=== PATIENT | male | born 1955 | race Caucasian/White ===

== ENCOUNTER 2021-09-22 10:56 | Inpatient (IN) | payer MEDICAID ==
[~2021-09-22] VITALS: Ht 177.8 cm; Wt 63.6 kg
--- NOTE | 2021-09-22 11:09 | NUR ---
Dr Correa aware of pat BP, IVF orders received, to assess patient.
[2021-09-22] MEDS ORDERED: normal saline 1000ML IV soln IV ONE (11:10)
[2021-09-22 11:30] LABS: BASOPHILS # (AUTO) 0.1 X10'3 (0-0.2); BASOPHILS % (AUTO) 1.1 % (0-1); EOSINOPHILS # (AUTO) 0.3 X10'3 (0-0.9); EOSINOPHILS % (AUTO) 2.9 % (0-6); HEMATOCRIT 40.6 % (42.0-52.0); HEMOGLOBIN 13.8 g/dl (14.0-17.9); LYMPHOCYTES # (AUTO) 2.3 X10'3 (1.1-4.8); LYMPHOCYTES % (AUTO) 22.7 % (21-51); MEAN CORPUSCULAR HEMOGLOBIN 29.3 PG (27.0-31.0); MEAN CORPUSCULAR HGB CONC 33.9 g/dL (33.0-36.5); MEAN CORPUSCULAR VOLUME 86.6 FL (78-98); MEAN PLATELET VOLUME 9.6 FL (7.4-10.4); MONOCYTES # (AUTO) 0.7 X10'3 (0-0.9); MONOCYTES % (AUTO) 6.7 % (2-12); NEUTROPHILS # (AUTO) 6.7 X10'3 (1.8-7.7); NEUTROPHILS % (AUTO) 66.6 % (42-75); PLATELET COUNT 295 X10'3 (140-440); RED CELL DISTRIBUTION WIDTH 13.4 % (11.5-14.5); WHITE BLOOD COUNT 10.1 X10'3 (4.5-11.0)
[2021-09-22 12:00] LABS: ALANINE AMINOTRANSFERASE 24 U/L (12-78); ALBUMIN 3.5 G/DL (3.4-5.0); ALBUMIN/GLOBULIN RATIO 0.9 (1.1-1.5); ALKALINE PHOSPHATASE 199 IU/L (46-116); ANION GAP 12 (8-16); ASPARTATE AMINO TRANSFERASE 13 U/L (10-37); BILIRUBIN,TOTAL 0.5 MG/DL (0.1-1.0); BLOOD UREA NITROGEN 24 MG/DL (7-18); BUN/CREATININE RATIO 10.1 (5.4-32.0); CALCIUM 8.7 MG/DL (8.5-10.1); CHLORIDE 99 MMOL/L (99-107); CREATININE 2.37 MG/DL (0.60-1.10); GLUCOSE 155 MG/DL (70-104); POTASSIUM 3.1 MMOL/L (3.5-5.1); SODIUM 132 MMOL/L (135-145); TOTAL CARBON DIOXIDE 20.7 MMOL/L (24-32); TOTAL PROTEIN 7.6 G/DL (6.4-8.2); eGFR 28 ML/MIN
--- NOTE | 2021-09-22 12:59 | NUR ---
CONTACT: LALA -SISTER
[2021-09-22] MEDS ORDERED: INSU100V9 SQ (13:14)
[2021-09-22] MEDS ORDERED: INSU100C10 SQ (13:14)
[2021-09-22] MEDS ORDERED: magnesium hydroxide 30ml (MOM) UD suspension PO PRN (13:55)
[2021-09-22] MEDS ORDERED: potassium Cl 40MEQ/1/2NS 520ml 520 ML IV PRN ×2 (13:55)
[2021-09-22] MEDS ORDERED: PERFLUTREN PROTEIN-A MICROSPHR (Optison) 0.22 MG/ML 3ML VIAL IV PRN (13:55)
[2021-09-22] MEDS ORDERED: potassium Cl 20 mEq SR tablet PO PRN (13:55)
[2021-09-22] MEDS ORDERED: ondansetron/PF 4mg/2ml inj IV PRN (13:55)
[2021-09-22] MEDS ORDERED: mag hydrox/Alum hydrox/simeth 30ml oral suspension PO PRN (13:55)
[2021-09-22] MEDS ORDERED: acetaminophen 325mg tablet PO PRN (13:55)
[2021-09-22] MEDS ORDERED: MESSAGE TO PHARMACY PO ONE (14:00)
[2021-09-22] MEDS ORDERED: dextrose 50%-water 50ml dispensing syringe IV PRN ×2 (14:00)
[2021-09-22] MEDS ORDERED: dextrose ORAL solution 15 GM/59 ML bottle PO PRN ×2 (14:00)
[2021-09-22] MEDS ORDERED: glucagon, human recombinant 1mg kit SUBCUT PRN (14:00)
[2021-09-22 14:48] LABS: MAGNESIUM 1.9 MG/DL (1.5-2.4)
--- NOTE | 2021-09-22 16:09 | NUR ---
5/10 dull aching chest pain. does not radiate anywhere. SL held
[2021-09-22] MEDS: normal saline 1000ml 1,000 ML IV SCH ×2 (16:54→23:19)
[2021-09-22] MEDS: K and/or MAG REPLACEMENT MC SCH (19:04)
[2021-09-22] MEDS: heparin, porcine 5000 units/ml vial SQ SCH (19:05)
[2021-09-22] MEDS: potassium Cl 20 mEq SR tablet PO PRN (19:05)
[2021-09-22] MEDS: docusate sod 100mg capsule PO SCH (19:05)
[2021-09-22] MEDS ORDERED: insulin glargine (Lantus) pen - multi-dose SQ SCH (21:00)
[2021-09-22] MEDS: insulin Lispro (HumaLOG) vial - multi-dose SQ SCH (21:52)
[2021-09-22 23:37] VITALS: BP 107/67
[2021-09-23 02:00] VITALS: BP 119/74
[2021-09-23] MEDS: potassium Cl 20 mEq SR tablet PO PRN (02:59)
[2021-09-23 06:00] VITALS: BP 106/63
[2021-09-23 06:23] LABS: BASOPHILS % (AUTO) 0.9 % (0-1); EOSINOPHILS # (AUTO) 0.2 X10'3 (0-0.9); EOSINOPHILS % (AUTO) 4.7 % (0-6); HEMOGLOBIN 11.8 g/dl (14.0-17.9); LYMPHOCYTES # (AUTO) 1.5 X10'3 (1.1-4.8); LYMPHOCYTES % (AUTO) 30.4 % (21-51); MEAN CORPUSCULAR HEMOGLOBIN 29.6 PG (27.0-31.0); MEAN CORPUSCULAR HGB CONC 34.8 g/dL (33.0-36.5); MEAN CORPUSCULAR VOLUME 85.3 FL (78-98); MEAN PLATELET VOLUME 9.2 FL (7.4-10.4); MONOCYTES # (AUTO) 0.3 X10'3 (0-0.9); NEUTROPHILS # (AUTO) 2.8 X10'3 (1.8-7.7); PLATELET COUNT 181 X10'3 (140-440); RED BLOOD COUNT 3.98 X10'6 (4.70-6.10); RED CELL DISTRIBUTION WIDTH 13.6 % (11.5-14.5); WHITE BLOOD COUNT 4.9 X10'3 (4.5-11.0)
[2021-09-23 07:06] LABS: ALANINE AMINOTRANSFERASE 20 U/L (12-78); ALBUMIN 2.6 G/DL (3.4-5.0); ALBUMIN/GLOBULIN RATIO 0.8 (1.1-1.5); ALKALINE PHOSPHATASE 114 IU/L (46-116); ANION GAP 11 (8-16); ASPARTATE AMINO TRANSFERASE 19 U/L (10-37); BILIRUBIN,TOTAL 0.3 MG/DL (0.1-1.0); BLOOD UREA NITROGEN 18 MG/DL (7-18); BUN/CREATININE RATIO 9.2 (5.4-32.0); CALCIUM 7.9 MG/DL (8.5-10.1); CHLORIDE 112 MMOL/L (99-107); CREATININE 1.96 MG/DL (0.60-1.10); GLUCOSE 149 MG/DL (70-104); SODIUM 141 MMOL/L (135-145); TOTAL CARBON DIOXIDE 17.9 MMOL/L (24-32); eGFR 35 ML/MIN
[2021-09-23] MEDS: K and/or MAG REPLACEMENT MC SCH (08:00)
[2021-09-23] MEDS: docusate sod 100mg capsule PO SCH (08:00)
[2021-09-23] MEDS: heparin, porcine 5000 units/ml vial SQ SCH (08:51)
[2021-09-23] MEDS ORDERED: magnesium Cl slow-release 64mg tablet PO PRN (08:55)
[2021-09-23] MEDS ORDERED: magnesium 4gm in 100ml NS 100 ML IV PRN (08:55)
[2021-09-23] MEDS ORDERED: sodium bicarbonate (8.4%) inj. 50 MEQ in dextrose 5%-water 1,000 ML IV SCH (09:00)
[2021-09-23] MEDS: insulin Lispro (HumaLOG) vial - multi-dose SQ SCH ×2 (09:16→14:05)
[2021-09-23] MEDS ORDERED: meclizine 12.5mg tablet PO PRN (09:55)
[2021-09-23 11:00] VITALS: BP 120/72
[2021-09-23 15:00] VITALS: BP 115/73
--- NOTE | 2021-09-23 16:20 | NUR ---
PAGER ID: [phone] MESSAGE: [id number] Michaela- wants to leave AMLiliana Davis [phone]
--- NOTE | 2021-09-23 16:20 | NUR ---
Patient states he wants to leave because he doesn't like being woken up and the bed next door is too loud. Physician made aware. PIV removed with catheter intact x2. Telemetry removed and belongings given gathered. Patient escorted off unit by charge nurse. Physician made aware he left
--- NOTE | 2021-09-23 16:45 | NUR ---
Page to Dr. Masterson PAGER ID: [phone] MESSAGE: [id number] Michaela- Patient left AMA. Davis [phone]
[2021-09-23] MEDS ORDERED: K and/or MAG REPLACEMENT MC SCH (20:00)
== END 2021-09-23 16:27 | disposition left against medical advice (07) | DRG 204 ==
LOC: ER 10:56 → ED HOLD 13:57 → PCU 3S 22:45
PROVIDERS: ADMIT Internal Medicine; ATTEND Family Medicine
DX: R55 Syncope and collapse (principal); E87.2 Acidosis; E11.9 Type 2 diabetes mellitus without complications; F17.210 Nicotine dependence, cigarettes, uncomplicated; Z20.822 Contact with and (suspected) exposure to COVID-19; Z53.29 Procedure and treatment not carried out because of patient's decision for other reasons; Z88.8 Allergy status to other drugs, medicaments and biological substances; Z79.899 Other long term (current) drug therapy; Z79.4 Long term (current) use of insulin
CPT/HCPCS: 36415; 70544; 70547; 70551; 71045; 71250; 80053; 82948; 83605; 83735; 83880; 84145; 84443; 84484; 85025; 87040; 87081; 87635; 93005; 93306; 93880; 96360; 99285; G0378; J1644; J1815; J7030